=== PATIENT | female | born 1970 ===

== ENCOUNTER 2017-09-02 12:27 | Day surgery (SDC) | payer OTHER ==
[2017-09-02] MEDS ORDERED: BUPIVACAINE 0.25% 30 ML SDV ONE (12:38)
[2017-09-02] MEDS ORDERED: LIDO/EPI 1% **for epidural** 30 ML SDV ONE (12:39)
[2017-09-02] MEDS ORDERED: LR 1,000 ML IV ONE (12:51)
[2017-09-02 12:56] VITALS: PULSE 93
--- NOTE | 2017-09-02 12:59 | GHP ---
[f rep st] PREOP HISTORY AND PHYSICAL DATE OF ADMISSION: 09/02/2017 PREOPERATIVE DIAGNOSIS: Hallux valgus deformity right great toe. HISTORY OF PRESENT ILLNESS: Patient presented to [facility] in July of 2017 with a chief complaint of a right bunion deformity. It had progressively gotten worse over the years . She has been wearing orthotics and wider shoes for years, but at this point, she is doing very wel l other than her great toe with physical activity. She does yoga, hiking, walking, goes to the gym o n a regular basis for exercise activity, and the pain has been progressively getting worse and affect ing her exercise on a regular basis. PAST MEDICAL HISTORY: She is an extremely healthy, active female, middle-aged. MEDICATIONS: She is on amlodipine for genetic hypertension, no other medications. ALLERGIES: Denied any drug allergies. SOCIAL HISTORY: She has never used tobacco. Denies alcohol use. FAMILY HISTORY: She has no family history other than the hypertension, no other family history of he alth issues. REVIEW OF SYSTEMS: At her preop appointment we discussed her general health. She denied any recent changes in her health, including headaches, vision, hearing, nasal or throat problems. She denied an y cardiac arrhythmias, chest pain, shortness of breath, GI distress, neurologic, dermatologic, or oth er musculoskeletal problems. PHYSICAL EXAMINATION: GENERAL: Normal neurovascular status for a healthy, active, 47-year-old isabell carr. She currently she takes care of 2 kids at home. She is on her feet anywhere from 8-10 hours a da y. VASCULAR: Pulses were 2/4. Normal capillary refill less than 5 seconds to digits x10. NEUROLOG IC: Sharp, dull, light touch proprioception all intact and symmetric to the digital level. SKIN: N ormal temperature, texture, turgor, normal hair distribution to both extremities. MUSCULOSKELETAL: 5/5 manual muscle testing anterior, lateral and posterior muscle groups, including the intrinsic musc les. RIGHT LOWER EXTREMITY: On x-ray she shows elevated intermetatarsal hallux abductus angles. Lexi carr had a similar surgery done on the left foot years ago, and did exceedingly well. At this point, lexi carr wants the same procedure done on the right foot. Clinically, she has a positional deformity as wel l as mechanical changes that have occurred with the foot on that right great toe. There is decreased range of motion to 45 degrees of dorsiflexion from neutral and there is mild crepitation and pain wh en placed in a corrected position. ASSESSMENT: Hallux valgus deformity right great toe. PLANNED PROCEDURE: Modified Stout bunionectomy with osteotomy screw fixation, and an Smith osteotom y with screw fixation. Preoperatively we discussed risks and complications, including residual pain, delayed healing. Patient understood. Consent form was signed. She was given oral and written post op instructions, along with a prescription for Percocet 10/325, #30, one tab p.o. q.4h 6h p.r.n. pain , and she will be followed up x3 days postop at [facility] [place]. She was given my [facility] phone number for 24-hour call postoperatively should she have any problems or questions. /[id number]/MODL
[2017-09-02] MEDS ORDERED: ceFAZolin 1 GM in NS 100 ML IV ONE (13:13)
[2017-09-02] MEDS ORDERED: ceFAZolin 2 GM/SWFI 2 GM/20 ML SYR IVP ONE (13:30)
[2017-09-02] MEDS ORDERED: NALOXONE HCL 0.4 MG/ML INJ IVP PRN (14:57)
[2017-09-02] MEDS ORDERED: ONDANSETRON 4 MG/2 ML VIAL IVP PRN (14:57)
[2017-09-02] MEDS ORDERED: ACETAMINOPHEN 500 MG TAB PO PRN (14:57)
[2017-09-02] MEDS ORDERED: HYDROCODONE/APAP 5/325 TAB PO PRN (14:57)
[2017-09-02] MEDS ORDERED: ALBUTEROL 3 ML DEYVIAL IH PRN (14:57)
[2017-09-02] MEDS ORDERED: OXYCODONE/APAP 5/325 TAB PO PRN (14:57)
[2017-09-02] MEDS ORDERED: DEXAMETHASONE 4 MG/ML VIAL IVP PRN (14:57)
[2017-09-02] MEDS ORDERED: LR 500 ML IV PRN (14:57)
[2017-09-02] MEDS ORDERED: fentaNYL 100 MCG/2 ML INJ IVP PRN (14:57)
[2017-09-02] MEDS ORDERED: PROMETHAZINE HCL 25 MG/ML INJ IVP PRN (14:57)
--- NOTE | 2017-09-02 14:59 | POSTANESTH ---
Post Anesthetic Evaluation Cardiovascular Status: Normal, Stable Respiratory Status: Normal, Stable Level of Consciousness/Mental Status: Can Participate in Eval Pain Control: Adequate, Prn Tx Ordered Nausea/Vomiting Control: Adequate, Prn Tx Ordered Complications Possibly Related to Anesthesia: None Noted
--- NOTE | 2017-09-02 14:59 | PDANEPAE ---
ANE Past Medical History - Cardiovascular History Hx Hypertension: Yes Hx Arrhythmias: No Hx Chest Pain: No Hx Coronary Artery / Peripheral Vascular Disease: No Hx CHF / Valvular Disease: No Hx Palpitations: No Cardiovascular History Comment: pcp and nephrology monitors bp - Pulmonary History Hx COPD: No Hx Asthma/Reactive Airway Disease: No Hx Recent Upper Respiratory Infection: No Hx Oxygen in Use at Home: No Hx Sleep Apnea: No Sleep Apnea Screening Result - Last Documented: Negative - Neurologic History Hx Cerebrovascular Accident: No Hx Seizures: No Hx Dementia: No Neurologic History Comment: migraines - Endocrine History Hx Diabetes: No - Renal History Hx Renal Disorders: No - Liver History Hx Hepatic Disorders: No - Neurological & Psychiatric Hx Hx Neurological and Psychiatric Disorders: Yes Neurological / Psychiatric History Comment: mild anxiety - Cancer History Hx Cancer: No - Congenital Disorder History Hx Congenital Disorders: No - GI History Hx Gastrointestinal Disorders: No - Other Health History Other Health History: none - Chronic Pain History Chronic Pain: No - Surgical History Prior Surgeries: left bunionectomy. wisdom teeth ANE Review of Systems Review of Systems: - Exercise capacity METS (RN): 4 METS ANE Patient History - Allergies Allergies/Adverse Reactions: No Known Allergies Allergy (Verified 08/26/17 14:21) - Home Medications Home Medications: Flexeril PRN 08/26/17 [Last Taken 2 Weeks Ago ~08/19/17] IMITREX PRN 08/26/17 [Last Taken 2 Weeks Ago ~08/19/17] Prozac 10 MG (*) 08/26/17 [Last Taken 09/02/17] amLODIPine BESYLATE 08/26/17 [Last Taken 09/02/17] - NPO status NPO Since - Liquids (Date): 09/02/17 NPO Since - Liquids (Time): 10:30 NPO Since - Solids (Date): 09/01/17 NPO Since - Solids (Time): 19:00 - Smoking Hx Smoking Status: Former smoker - Family Anes Hx Family Hx Anesthesia Complications: none ANE Labs/Vital Signs - Vital Signs Blood Pressure: 150/94 Heart Rate: 93 Respiratory Rate: 18 O2 Sat (%): 98 Height: 160.02 cm Weight: 54.431 kg ANE Physical Exam - Airway Neck exam: FROM Mallampati Score: Class 1 Mouth exam: normal dental/mouth exam - Pulmonary Pulmonary: no respiratory distress, no rales or rhonchi, clear to auscultation - Cardiovascular Cardiovascular: regular rate and rhythym, no murmur, rub, or gallop, pulses symmetric bilaterally - ASA Status ASA Status: II ANE Anesthesia Plan Anesthesia Plan: GA with mask
[2017-09-02 16:23] VITALS: BP 131/88; RESP 16; TEMP 97.7; O2SAT 95
--- NOTE | 2017-09-19 12:11 | GOP ---
[f rep st] OPERATIVE REPORT DATE OF OPERATION: 09/02/2017 SURGEON: Alejandro Silverman DPM ANESTHESIA: IV MAC plus local infiltration of 5 cc of 1% lidocaine plain and additional 5 cc of 0.25 % Marcaine with epinephrine and the block was a Davis-type block across the mid tarsal joint medially. PREOPERATIVE DIAGNOSIS: Hallux valgus deformity right great toe. POSTOPERATIVE DIAGNOSIS: Hallux valgus deformity right great toe. PROCEDURE PERFORMED: 1. Modified Stout bunionectomy with osteotomy screw fixation. 2. Smith osteotomy with screw fixation. FINDINGS: ESTIMATED BLOOD LOSS: Less than 10 cc. DESCRIPTION OF PROCEDURE: The patient was taken to the operating room, placed in supine position aft er local and MAC anesthesia. The right lower extremity was elevated, prepped and draped in the usual sterile OR fashion achieving a sterile field about the entire distal aspect of the extremity. After elevation and exsanguination, tourniquet was inflated to 225 mmHg. Total tourniquet time was approxi mately 1 hour. At this point, attention was directed to the medial aspect of the right great toe wher e approximately 3 inch linear incision was made medial over the metatarsophalangeal joint. Care was taken to preserve the neurovascular status. The 1st intermetatarsal space was entered via sharp and b breanne dissection. The adductor tendon was identified and released sharply from its attachments into t he base of the proximal phalanx. The toe then could manually be moved in a nice corrected position v lyndsay easily. The dorsal capsule was then incised just medial to the extensor hallucis longus tendon. This was reflected medially and laterally along with the periosteum at the distal aspect of the metat arsal and at the base of the proximal phalanx. Again, care was taken to preserve the neurovascular s tatus. There was some mild degenerative thinning of the cartilage on the metatarsal head but, other t arias that, it looked pretty good intraoperatively. At this point, a 0.035 K-wire was placed through th e metaphysis of the metatarsal orienting the K-wire such that it would slightly plantar flex the meta tarsal once the osteotomy was carried out. A V or chevron osteotomy was carried out with an elongate d dorsal wing. The metatarsal was shifted laterally, impacted upon itself and held fast with the same 0.035 K-wire as temporary fixation. Utilizing AO technique, a single 2.4 mm OsteoMed screw was plac ed through the dorsal wing and retrograded back into the metatarsal. There was excellent compression noted intraoperatively. The K-wire was removed from the operative site. Redundant bone was removed medially and rasped smooth utilizing a rotary bur. The great toe was taken through range of motion, deemed to be fairly anatomically aligned but it was still pushing on the 2nd toe slightly. At this po int, attention was directed to the proximal phalanx where an oblique wedge osteotomy was carried out with the apex proximal lateral. This wedge of bone was removed from the operative site. The fractur e reduction clamp was utilized to close the osteotomy and hold it temporarily. At this point, again u tilizing AO technique, 2 parallel 2.4 mm OsteoMed screws were placed intraoperatively perpendicular t o the osteotomy site with excellent compression noted. At this point, the clamp was removed from the operative site. The great toe was deemed to be anatomically aligned. I did move the toe through a complete range of motion. The area was flushed copiously with dilute antibiotic solution. Redundant capsule was capsulotomized and the capsule was then reapproximated utilizing 3-0 Vicryl in a simple interrupted suture. Periosteum was reapproximated utilizing 4-0 Vicryl in a simple interrupted sutur e. Subcu closure was carried out via 4-0 Vicryl in a horizontal mattress suture. The skin was close d via 4-0 Prolene in a running subcuticular stitch. It was reinforced with Mastisol and Steri-Strips . A sterile dressing was applied, Adaptic, 4 x 4, Marya, and Coban were placed over the foot in gent le compression. Tourniquet was released. All digits immediately returned to a uniform pink color wit h normal capillary refill to all 5 digits. The patient went to recovery in a satisfactory state. He r vital signs remained stable. Her prognosis is very good for rapid recovery and she will be followe d up x3 days postop at [facility]. She was given my cell phone number for 24 ho ur call should she have any problems or questions. COMPLICATION: There were no complications. DRAINS: No drains were placed into the operative site. /[id number]/MODL
== END 2017-09-02 16:21 | disposition home or self-care (01) ==
LOC: FSGY 12:27
PROVIDERS: ATTEND Podiatrist
PROC: 0Q8N0ZZ Division of Right Metatarsal, Open Approach (ICD-10-PCS; principal; 2017-09-02 13:30)
PROC: 0QBN0ZZ Excision of Right Metatarsal, Open Approach (ICD-10-PCS; principal; 2017-09-02 13:30)
DX: M20.11 Hallux valgus (acquired), right foot (principal)
CPT/HCPCS: C1713; J0690